=== PATIENT | male | born 1990 | race Caucasian/White ===

== ENCOUNTER 2024-01-07 10:59 | Emergency (ER) | payer OTHER, SELFPAY ==
[2024-01-07 11:27] VITALS: BP 122/68; PULSE 80; RESP 16; TEMP 37.1; O2SAT 96; BMI 32.2
--- NOTE | 2024-01-07 11:36 | DI.RAD.S_ITS ---
PROCEDURE: XR ANKLE LT MIN 3V INDICATIONS: Left ankle pain TECHNIQUE: 3 views of the ankle were acquired. COMPARISON: None. FINDINGS: Bones: No fractures or dislocations. Ankle mortise is normally aligned. No suspicious bony lesions. Soft tissues: Possible bimalleolar swelling. No tibiotalar joint effusion. Achilles tendon appears normal. IMPRESSION: No acute bony abnormality or significant effusion. Possible soft tissue swelling. Dictated by: Edwin Domingo M.D. on 01/07/2024 at 11:58 Approved by: Edwin Domingo M.D. on 01/07/2024 at 11:59
--- NOTE | 2024-01-07 11:42 | ED_ITS ---
HPI - Extremity Injury (Lower) <JOHANN Mckinney - Last Filed: 01/07/24 12:11> General Chief Complaint: Extremity Injury, Lower Stated Complaint: need lt ankle looked at Time Seen by Provider: 01/07/24 11:34 Source: patient Mode of arrival: Family Vehicle History of Present Illness HPI Narrative: 33-year-old male, never smoker, presents to the emergency department with left ankle pain after playing rugby yesterday. Left ankle is visibly swollen and patient is limping. Related Data Allergies Allergy/AdvReac Type Severity Reaction Status Date / Time No Known Drug Allergies Allergy Verified 01/07/24 11:26 Review of Systems <JOHANN Mckinney - Last Filed: 01/07/24 12:11> Review of Systems Narrative: Narrative: See HPI. GENERAL: Denies chills, fatigue, fever, sweats. HEENT: Denies sinus pain, ear pain, sore throat, difficulty swallowing, dizziness. RESPIRATORY: Denies dyspnea, cough, wheezing, sputum. CARDIOVASCULAR: Denies chest pain, palpitations, edema. GASTROINTESTINAL: Denies nausea, vomiting, abdominal pain, diarrhea, constipation. MSK: Denies weakness. Endorses left ankle pain. SKIN: Denies rash, skin lesions, or pruritis. NEUROLOGIC: Denies weakness, dizziness, headache, numbness, confusion. Patient History <JOHANN Mckinney - Last Filed: 01/07/24 12:11> Social History Smoking Status: Never smoker Smoking Status: Never smoker alcohol intake frequency: holidays/special occasions only Substance Use Type: does not use Exam <JOHANN Mckinney - Last Filed: 01/07/24 12:11> Narrative Exam Narrative: Exam Narrative: GENERAL: This is a well-nourished, well-developed patient, in no acute distress. HEAD: Atraumatic. Normocephalic. EYES: Pupils equal round and reactive. No scleral icterus, injection or drainage. CARDIOVASCULAR: Regular rate and rhythm without murmurs, peripheral pulses intact, cap refill <2 sec. RESPIRATORY: Breath sounds equal and clear bilaterally. No wheezes, rales, or rhonchi. No cough. No increased respiratory effort. No accessory muscle use. MSK: Moves all extremities. Normal range of motion, no clubbing or edema. Neurovascularly intact. NEURO: A&O x 3. SKIN: Warm, dry, no rashes or lesions noted. FOOT: There is no swelling, bruising or asymmetry. There is no tenderness to general palpation. Sensation grossly intact. There is no tenderness over the mid-foot, metatarsals or arch. The ankle flexion and extension is intact. Toes range of motion intact. The contralateral foot exam is unremarkable. ANKLE: There is swelling, but no bruising or asymmetry. There is no tenderness to general palpation. Sensation grossly intact. There is tenderness over the medial, lateral malleolus, but no tenderness over the proximal tibia/fibula. The anterior mortise is non-tender. Flexion and extension is intact. Unable to test for stability or laxity due to pain. The contralateral ankle exam is unremarkable. Initial Vital Signs Initial Vital Signs: Vital Signs Temperature 98.7 F 01/07/24 11:27 Pulse Rate 80 01/07/24 11:27 Respiratory Rate 16 01/07/24 11:27 Blood Pressure 122/68 01/07/24 11:27 Pulse Oximetry 96 01/07/24 11:27 Oxygen Delivery Method Room Air 01/07/24 11:27 Reviewed <DO Marcelino Aguilar Last Filed: 01/07/24 12:19> Initial Vital Signs Initial Vital Signs: Vital Signs Temperature 98.7 F 01/07/24 11:27 Pulse Rate 80 01/07/24 11:27 Respiratory Rate 16 01/07/24 11:27 Blood Pressure 122/68 01/07/24 11:27 Pulse Oximetry 96 01/07/24 11:27 Oxygen Delivery Method Room Air 01/07/24 11:27 Course <JOHANN Mckinney - Last Filed: 01/07/24 12:11> Orders Ordered: ED Orders 01/07/24 11:36 XR ankle LT min 3V Stat Vital Signs Vital signs: Vital Signs - 8 hr 01/07/24 11:27 Temperature 98.7 F Pulse Rate 80 Respiratory Rate 16 Blood Pressure 122/68 Pulse Oximetry 96 Oxygen Delivery Method Room Air <Dat Garcia DO - Last Filed: 01/07/24 12:19> Orders Ordered: ED Orders 01/07/24 11:36 XR ankle LT min 3V Stat Vital Signs Vital signs: Vital Signs - 8 hr 01/07/24 11:27 Temperature 98.7 F Pulse Rate 80 Respiratory Rate 16 Blood Pressure 122/68 Pulse Oximetry 96 Oxygen Delivery Method Room Air MDM - Extremity Injury (Lower) <JOHANN Mckinney - Last Filed: 01/07/24 12:11> Differential Diagnosis Differential diagnosis: Likely ankle sprain and strain and ankle fracture Imaging Data Extremity x-ray #1: My Impression: Normal ankle Radiologist's Impression: [address] [address] XRay Report Signed Patient: Richard Coto MR#: [id number] : 1990 Acct:[id number] Age/Sex: 33 / M Date of Service: 01/07/24 Loc: ED Accession Number: [id number] Procedure: XR ankle LT min 3V Ordering Provider: Dat Sellers PROCEDURE: XR ANKLE LT MIN 3V INDICATIONS: Left ankle pain TECHNIQUE: 3 views of the ankle were acquired. COMPARISON: None. FINDINGS: Bones: No fractures or dislocations. Ankle mortise is normally aligned. No suspicious bony lesions. Soft tissues: Possible bimalleolar swelling. No tibiotalar joint effusion. Achilles tendon appears normal. IMPRESSION: No acute bony abnormality or significant effusion. Possible soft tissue swelling. Dictated by: Edwin Domingo M.D. on 01/07/2024 at 11:58 Approved by: Edwin Domingo M.D. on 01/07/2024 at 11:59 [facility] Narrative Medical decision making narrative: 33-year-old male with left ankle injury. Provider review of x-ray reveals a normal ankle. Radiologist's report confirms provider interpretation. Discussed supportive care measures such as Rest (modified activity), along with ice, com pression wrap/splint-immobilize as directed and elevation above heart. Tylenol or Ibuprofen for discomfort. Patient declined crutches at this time. Discussed plan of care and return precautions with the patient, who verbalized understanding and was agreeable with course of action. Discharge Plan Departure Patient Disposition: Home Clinical Impression: Ankle sprain and strain Instructions: DI for Ankle Sprain Activity Restrictions/Additional Instructions: *You have been diagnosed with a left ankle sprain. Your x-rays were normal and no fracture noticed. Please engage in good supportive care such as Rest (modified activity), along with ice, compression wrap/splint-immobilize as directed and elevation above heart. Ibuprofen 800 mg 3 times a day with food for discomfort. *What to do: *Please continue to take your regular medications as directed. [ ] New medication prescriptions sent to your pharmacy: [ ] [ ] New medication written as a paper prescription [x ] No new medications given *Please follow up with your primary care provider in 2-3 days, call for an appointment. Let them know you were seen in the Emergency Department and that we ask that you be seen in follow up. We will electronically transmit a record of today's note if your PCP is in our system *If you do not have a primary care provider please contact the [facility] Resource line at [phone]. They will ask some questions about your medical history and help get you set up with a doctor in the community. ? Return to ER if you should have any new, worsening or concerning symptoms, such as worsening pain, severe headache, confusion, chest pain, difficulty nell thing, fever greater than 101 F, shaking chills, persistent vomiting to the point that you cannot drink fluids, or other new or worsening symptoms. Stand Alone Forms: Patient Portal/API ED Sign-out <Dat Garcia, DO - Last Filed: 01/07/24 12:19> Cosign ED Attending Cosignature Attestation: Dr Garcia Co-Sign Statement: I was available for consultation during this patient's emergency department visit. This chart is signed by myself for administrative purposes only. I did not have direct contact with this patient during this visit. They were seen independently by the APC.
== END 2024-01-07 12:10 | disposition home or self-care (01) ==
PROVIDERS: Emergency Provider Registered Nurse
DX: S93.402A Sprain of unspecified ligament of left ankle, initial encounter (principal); S96.912A Strain of unspecified muscle and tendon at ankle and foot level, left foot, initial encounter; X58.XXXA Exposure to other specified factors, initial encounter; Y93.63 Activity, rugby
CPT/HCPCS: 73610; 99281; 99282